=== PATIENT | female | born 1980 | race Caucasian/White ===

== ENCOUNTER 2021-04-06 00:26 | Emergency (ER) | payer OTHER, MEDICAID ==
[~2021-04-06] VITALS: Ht 170.2 cm; Wt 99.8 kg
[2021-04-06 01:13] LABS: HEMATOCRIT 36.7 % (37.0-47.0); HEMOGLOBIN 12.2 gm/dL (12.0-15.0); MCH 28.3 pg (26.0-34.0); MCHC 33.1 g/dL (28.0-37.0); MCV 85.5 fL (80.0-100.0); MPV 7.9 fl. (7.2-11.1); RBC 4.3 mil/uL (4.20-5.00); RDW-CV 13.4 % (10.5-14.5); WBC 5.8 thou/uL (4.0-11.0)
[2021-04-06 01:19] LABS: CREATININE 0.8 mg/dL (0.6-1.3); POTASSIUM 3.7 mmol/L (3.5-5.1)
[2021-04-06 01:22] LABS: APTT 26.7 Seconds (25.0-31.3); INR 0.9; PROTIME 10.1 Seconds (9.20-11.50)
[2021-04-06 01:24] LABS: ALBUMIN 3.5 g/dL (3.4-5.0); TOTAL BILIRUBIN 0.3 mg/dL (<0.1-1.0); TOTAL PROTEIN 7.2 g/dL (6.4-8.2)
[2021-04-06] MEDS ORDERED: DOXYCYCLINE 10100 MG PO (02:17)
[2021-04-06] MEDS ORDERED: PREDNISONE 20 M20 MG PO (02:17)
[2021-04-06] MEDS ORDERED: CEPHALEXIN500 MG PO (02:22)
[2021-04-06 02:36] VITALS: BP 109/71
== END 2021-04-06 02:36 | disposition home or self-care (01) ==
LOC: M.ERS 00:26
PROVIDERS: Personal Emergency Response Attendant
DX: L03.116 Cellulitis of left lower limb (principal)